=== PATIENT | male | born 1935 | race African-American/Black ===

== ENCOUNTER 2016-12-12 12:07 | Day surgery (SDC) | payer OTHER ==
[2016-12-12 12:38] VITALS: BMI 25.0
[2016-12-12] MEDS ORDERED: PROPOFOL 20 ML ONE ×5 (12:51)
[2016-12-12] MEDS ORDERED: LIDOCAINE HCL 2% (20ML MULTI-DOSE VIAL) NR ONE (13:07)
[2016-12-12] MEDS ORDERED: ePHEDrine SULFATE 50 MG/1 ML AMPULE ONE (13:07)
[2016-12-12 13:56] VITALS: PULSE 42
[2016-12-12 14:24] VITALS: BP 121/72; TEMP 98
--- NOTE | 2016-12-13 16:12 | PATH ---
Surgical Pathology Report Patient Name: RUCHI CHANEY [facility]. Rec. #: [id number] /Age/Gender: 1935 (Age: 80) / M Account: [id number] Location: [facility]OS[facility] Taken: 12/12/2016 Received: 12/12/2016 Reported: 12/13/2016 Physicians: Golden Loco M.D. Specimen(s) Received A: BX ANTRUM ATROPHIC GASTRITIS B: BX BODY ATROPHIC GASTRITIS Clinical History History of gastric ulcer, GERD Atrophic gastritis Final Diagnosis A. 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 NEGATIVE FOR DYSPLASIA. IMMUNOSTAIN FOR H. PYLORI IS NEGATIVE FOR ORGANISMS. B. 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 NEGATIVE FOR DYSPLASIA. IMMUNOSTAIN FOR H. PYLORI IS NEGATIVE FOR ORGANISMS. Electronically Signed Tim Zepeda M.D. Gross Description A. Received in formalin, labeled "biopsy antrum atrophic gastritis" are 3 olivarez, irregular portions of soft tissue ranging from 0.2-0.4 cm in greatest dimension. The specimens are submitted in toto in one cassette. B. Received in formalin, labeled "biopsy body" are 2 olivarez, irregular portions of soft tissue measuring 0.2 and 0.3 cm in greatest dimension. The specimens are submitted in toto in one cassette. /12/12/201612/12/2016
== END 2016-12-12 14:24 | disposition home or self-care (01) ==
LOC: JASU-ENDO 12:07
PROVIDERS: ATTEND Internal Medicine Gastroenterology
PROC: 0DB68ZX Excision of Stomach, Via Natural or Artificial Opening Endoscopic, Diagnostic (ICD-10-PCS; principal; 2016-12-12 11:30)
DX: K31.89 Other diseases of stomach and duodenum (principal); R10.13 Epigastric pain
CPT/HCPCS: 88305-TC; 88342-TC

== ENCOUNTER 2020-08-29 13:40 | Emergency (ER) | payer OTHER ==
[2020-08-29 13:58] VITALS: BP 147/63; PULSE 53; TEMP 97; BMI 23.8
[2020-08-29] MEDS ORDERED: diphenhydrAMINE HCL 25 MG CAPSULE (FP) PO ONE ×3 (14:32→14:50)
[2020-08-29] MEDS ORDERED: DEXAMETHASONE 4 MG TABLET (FP) PO ONE (14:33)
[2020-08-29] MEDS ORDERED: FAMOTIDINE 20 MG TABLET PO ONE (14:33)
[2020-08-29] MEDS ORDERED: DEXAMETHASONE SOD PHOSPHATE 10 MG/1 ML VIAL ONE (14:43)
[2020-08-29] MEDS ORDERED: FAMOTIDINE 20 MG TABLET ONE ×2 (14:43→14:50)
== END 2020-08-29 17:30 | disposition short-term general hospital (02) ==
LOC: JERFT 13:40 → JER 13:40 → JERFT 17:30
DX: T78.3XXA Angioneurotic edema, initial encounter (principal)
CPT/HCPCS: 99284-25